=== PATIENT | female | born 1945 | race Caucasian/White ===

== ENCOUNTER → 2023-10-19 10:15 | Outpatient (REF) | payer MEDICARE, OTHER, SELFPAY | LOC: RAD 10:15 | PROVIDERS: ATTENDING PHYSICIAN Nurse Practitioner Adult Health | DX: I82.462 Acute embolism and thrombosis of left calf muscular vein (principal); Z79.01 Long term (current) use of anticoagulants; E87.1 Hypo-osmolality and hyponatremia | CPT/HCPCS: 93971 ==

== ENCOUNTER → 2023-12-17 15:22 | Outpatient (REF) | payer MEDICARE, SELFPAY | LOC: WDC 15:22 | PROVIDERS: ATTENDING PHYSICIAN Family Medicine | DX: Z78.0 Asymptomatic menopausal state (principal); Z12.31 Encounter for screening mammogram for malignant neoplasm of breast | CPT/HCPCS: 77063; 77067; 77080 ==

== ENCOUNTER → 2024-01-08 16:10 | Outpatient (REF) | payer MEDICARE, SELFPAY ==
[2024-01-08 17:15] LABS: % Basophils 0.4 % (0-2); % Eosinophils 0.5 % (0-6); % Immature Granulocytes 0.4 % (0-0.5); % Monocytes 10.8 % (1.7-9.3); % Neutrophils 63.9 % (42.2-75.2); Absolute Lymphocytes 1.8 10^3/uL (1.2-3.4); Absolute Monocytes 0.8 10^3/uL (0.1-0.6); Absolute Neutrophils 4.7 10^3/uL (1.4-6.5); Hematocrit 38.6 % (37.0-47.0); Hemoglobin 12.8 g/dL (12.0-16.0); Mean Corp Hgb Conc. 33.2 g/dL (33.0-37.0); Mean Corpuscular Hgb 28.9 pg (27.0-31.0); Mean Corpuscular Volume 87.1 fL (81.0-99.0); Nucleated Red Blood Cells % 0 %; Platelet Count 184 10^3/uL (130-400); Red Blood Cell Count 4.43 10^6/uL (4.20-5.40); Red Cell Dist. Width 15.4 % (11.5-14.5); White Blood Cell Count 7.4 10^3/uL (4.8-10.8)
[2024-01-08 17:32] LABS: ALT (SGPT) 16 U/L (0-35); AST (SGOT) 23 U/L (14-36); Albumin 4.1 g/dl (3.5-5.0); Alkaline Phosphatase 67 U/L (38-126); Blood Urea Nitrogen 15 mg/dl (7-17); Calcium 9.6 mg/dl (8.4-10.2); Carbon Dioxide 27 mmol/L (22-30); Chloride 100 mmol/L (98-107); Direct Bilirubin 0.3 mg/dl (0.0-0.4); Glucose 96 mg/dl (70-99); Iron 90 ug/dl (37-170); Potassium 4.4 mmol/L (3.5-5.1); Sodium 135 mmol/L (135-145); Total Bilirubin 0.6 mg/dl (0.2-1.3); Total Protein 7.1 g/dl (6.3-8.2); eGFR > 60.00
[2024-01-08 17:41] LABS: Percent Saturation 26 % (20-50); Total Iron Binding Capacity 334 ug/dl (265-497)
[2024-01-08 18:03] LABS: TSH 1.02 uIU/ml (0.47-4.68)
[2024-01-08 18:07] LABS: Ferritin 77.5 ng/ml (11.1-264.0)
== END ==
LOC: REG 16:10
PROVIDERS: ATTENDING PHYSICIAN Nurse Practitioner Adult Health; FAMILY PHYSICIAN Family Medicine; REFERRING PHYSICIAN Podiatrist Foot Surgery
DX: I82.462 Acute embolism and thrombosis of left calf muscular vein (principal); Z79.01 Long term (current) use of anticoagulants; E87.1 Hypo-osmolality and hyponatremia; G25.81 Restless legs syndrome; M97.02XA Periprosthetic fracture around internal prosthetic left hip joint, initial encounter
CPT/HCPCS: 36415; 80053; 82248; 82728; 83540; 83550; 84443; 85025

== ENCOUNTER → 2024-04-22 15:05 | Outpatient (REF) | payer MEDICARE, SELFPAY ==
[2024-04-22 17:12] LABS: ALT (SGPT) 14 U/L (0-35); AST (SGOT) 25 U/L (14-36); Albumin 4.6 g/dl (3.5-5.0); Alkaline Phosphatase 76 U/L (38-126); Direct Bilirubin 0.3 mg/dl (0.0-0.4); Total Bilirubin 0.6 mg/dl (0.2-1.3)
[2024-04-22 17:27] LABS: Total Protein 7.3 g/dl (6.3-8.2)
== END ==
LOC: REG 15:05
PROVIDERS: ATTENDING PHYSICIAN Podiatrist Foot Surgery; FAMILY PHYSICIAN Family Medicine
DX: I10 Essential (primary) hypertension (principal)
CPT/HCPCS: 36415; 80076

== ENCOUNTER 2024-08-20 02:01 | Emergency (ER) | payer MEDICARE, SELFPAY ==
[2024-08-20] VITALS (12 sets, daily range): BP systolic 83–137; BP diastolic 56–88; PULSE 73–101
[2024-08-20 02:52] LABS: % Basophils 0.4 % (0-2); % Eosinophils 1.6 % (0-6); % Immature Granulocytes 0.3 % (0-0.5); % Lymphocytes 37.5 % (20.5-51.1); % Monocytes 10.7 % (1.7-9.3); % Neutrophils 49.5 % (42.2-75.2); Absolute Eosinophils 0.1 10^3/uL (0-0.7); Absolute Lymphocytes 2.5 10^3/uL (1.2-3.4); Absolute Monocytes 0.7 10^3/uL (0.1-0.6); Absolute Neutrophils 3.3 10^3/uL (1.4-6.5); Hematocrit 36.7 % (37.0-47.0); Hemoglobin 12.1 g/dL (12.0-16.0); Mean Corpuscular Hgb 28.9 pg (27.0-31.0); Mean Corpuscular Volume 87.6 fL (81.0-99.0); Mean Platelet Volume 9.2 fL (7.4-10.4); Nucleated Red Blood Cells % 0 %; Platelet Count 206 10^3/uL (130-400); Red Blood Cell Count 4.19 10^6/uL (4.20-5.40); Red Cell Dist. Width 13.5 % (11.5-14.5); White Blood Cell Count 6.8 10^3/uL (4.8-10.8)
[2024-08-20 03:04] LABS: INR 1.05; PT 14.2 Sec (11.4-14.6)
[2024-08-20 03:05] LABS: APTT 25.3 Sec (23.4-35.0)
[2024-08-20 03:14] LABS: ALT (SGPT) 15 U/L (0-35); AST (SGOT) 24 U/L (14-36); Albumin 4.1 g/dl (3.5-5.0); Alkaline Phosphatase 70 U/L (38-126); Blood Urea Nitrogen 19 mg/dl (7-17); Calcium 9.3 mg/dl (8.4-10.2); Carbon Dioxide 25 mmol/L (22-30); Chloride 99 mmol/L (98-107); Glucose 129 mg/dl (70-99); Potassium 4.4 mmol/L (3.5-5.1); Sodium 132 mmol/L (135-145); Total Bilirubin 0.2 mg/dl (0.2-1.3); Total Protein 6.9 g/dl (6.3-8.2); eGFR > 60.00
--- NOTE | 2024-08-20 03:50 | ED.GENMED ---
History of Present Illness
General
Chief Complaint: Trauma Significant Mechanism
Source: patient and family
Exam Limitations: none
Time Seen by Provider: 08/20/24 02:18
Nursing documentation reviewed up to this point in time: agreed with
History of Present Illness
History of Present Illness:
78-year-old female presents with head injury. She slipped on some water and struck her head on the frame of the bathtub. She did suffer a large laceration to her left forehead. She is not on any blood thinners. Patient did state that while in
the emergency department she did have some neck pain. She was immediately put in a cervical collar. CT scan of the head and cervical spine ordered. Patient denies any other symptoms.
Past History
Past History
ED Past Medical History: GERD, Psychiatric and Other (Back pain, osteoarthritis, cataracts)
ED Past Surgical History: Gynecological (Oophorectomy), Orthopedic (keller rods 2009, L CRESENCIO 2012. To have protruding valentín removed next month) and Tonsilectomy
Social History
Tobacco: Non-smoker
Personal:
Living: with family
Employment: Employed
Review of Systems
Review of Systems
Allergies reviewed?: Yes
Other source history: family
All Other Systems: ROS reviewed and negative except as documented in HPI and ROS
Constitutional: Reports no symptoms
EENT: Reports no symptoms
Respiratory: Reports no symptoms
Cardiac: Reports no symptoms
ABD/GI: Reports no symptoms
: Reports no symptoms
Musculoskeletal: Reports neck pain
Skin: Reports no symptoms
Neurological: Reports headache
Endocrine: Reports no symptoms
Hematologic/Lymphatic: Reports no symptoms
Psychiatric: Reports no symptoms
Phy Exam
General Physical Exam
General Presentation: well appearing and no apparent distress
General Skin: warm and dry
General Habitus: normal
General Mental: alert
General Hydration: appears well hydrated
ENT Exam
ENT Exam: EOMI, pharynx normal, neck supple and normocephalic
Eye Exam
Eye Exam: PERRL, cornea clear and conjunctiva normal
Cardiovascular Exam
Cardiovascular Exam: regular rate/rhythm, no edema, no murmur and normal peripheral pulses
Pulmonary Exam
Pulmonary Exam: lungs clear, no respiratory distress, no rales, no crackles, no rhonchi, no stridor, no wheezing and no cough
Gastrointestinal Exam
Gastrointestinal Exam: normal bowel sounds, non tender, soft, no organomegaly, no pulsatile mass and non distended
Neurological Exam
Neurological Exam: alert, oriented x3, no motor deficits and speech normal
Musculoskeletal Exam
Musculoskeletal Exam: full ROM and no edema
Skin Exam
Skin Exam: normal color, warm/dry, no rash, no petechia and laceration (Left forehead)
Psychiatric Exam
Psychiatric Exam: normal mood/affect
Course
Orders/Labs/Results
Orders:
Orders
08/20/24 02:09
CT Head W/o Iv Contrast Urgent
Comment:
Reason For Exam: trip and fall
08/20/24 02:15
CT Cervical Spine W/o Iv Contr Stat
Comment:
Reason For Exam: fall
08/20/24 02:35
Type+Screen Stat
Complete Blood Count/With Diff Stat
Comprehensive Metabolic Panel Stat
PTT Stat
Prothrombin Time Stat
08/20/24 06:03
Acetaminophen [Tylenol] 650 mg .ROUTE .STK-MED ONE
08/20/24 06:09
0.9% Sodium Chloride 500 ml [Nss] 500 ml IV BOLUS
08/20/24 06:11
Acetaminophen [Tylenol] 650 mg PO NOW STA
Abnormal Lab Results
08/20/24
02:35
RBC 4.19 L 10^6/uL
(4.20-5.40)
Hct 36.7 L %
(37.0-47.0)
Absolute Monos (auto) 0.7 H 10^3/uL
(0.1-0.6)
Monocytes % 10.7 H %
(1.7-9.3)
Sodium 132 L mmol/L
(135-145)
BUN 19 H mg/dl
(7-17)
Glucose 129 H mg/dl
(70-99)
08/20/24 02:35
08/20/24 02:35
Vital Signs
Initial and Last Documented VS:
Initial Vital Signs
Temp Pulse Resp BP Pulse Ox
97.7 F 82 24 137/84 98
08/20/24 02:05 08/20/24 02:05 08/20/24 02:05 08/20/24 02:05 08/20/24 02:05
Last Documented Vital Signs
Temp Pulse Resp BP Pulse Ox
97.7 F 82 24 137/84 95
08/20/24 02:05 08/20/24 02:05 08/20/24 02:05 08/20/24 02:05 08/20/24 02:45
Procedures
Laceration Closure
Left Forehead:
Status of Wound: clean
Size of Wound in cm: 4
Description of Wound Edges: sharp and flap-well vascularized
Preparation: cleaned with soap & water and cleaned with saline
Anesthesia: 1% Lidocaine with epi (To stop the bleeding arterial)
Revision/Debridement: routine- no revision
Wound exploration: explored to base- no FB
Type of Closure: single layer closure
Skin Closure Material: 5-0 nylon and 5-0 prolene
Number of sutures: 7
Additional information:
Patient tolerated procedure well
*Radiology
Radiology exam reviewed: radiology read reviewed
*Pulse Oximetry
Patient hypoxic: no
*Critical Care Note
Total Time (30-74mins, 75-104mins- exclusive of procedures): Not Applicable
Update Note
Update Note:
CT head and C-spine without IV contrast
IMPRESSION:
CT HEAD: Left frontal/parietal scalp laceration without underlying calvarial fracture or acute intracranial abnormality.
CT CERVICAL spine: No acute osseous trauma. Alignment intact. Degeneration. Vertebral body heights preserved. Craniocervical junction intact. Bone demineralization.
Finalized at 3:42 AM EST
Rafat Falk M.D.
ED Attending Note
-
Portions of this chart may have been created with voice recognition software.� Occasional wrong word or��sound alike� substitutions may have occurred due to the inherent limitations of voice recognition software.
Discharge Plan
Departure
Patient Disposition: Home (Routine Discharge)
Date of Disposition: 08/20/24
Time of Disposition: 07:37
Patient with high blood pressure during this ER visit?: No
Condition: Fair
Discharge Problem:
Fall, Forehead laceration
Instructions: Wound Care (DC), Head Injury in Adults (DC), Laceration Repair With Stitches (DC), BLOOD PRESSURE
Prescriptions:
No Action
ropinirole 0.5 mg Tablet
0.5 mg PO HS
duloxetine 20 mg Capsule,Delayed Release(Dr/Ec)
40 mg PO HS
solifenacin [Vesicare] 5 mg Tablet
5 mg PO HS
docusate sodium 100 mg Capsule
100 mg PO BID Qty: 0 0RF
Eliquis 5 mg Tablet
5 mg PO BID Qty: 0 0RF
polyethylene glycol 3350 [HealthyLax] 17 gram Powder In Packet
17 g PO DAILY Qty: 0 0RF
oxycodone 5 mg Tablet
10 mg PO Q4HPRN PRN (Reason: severe pain) Qty: 10 0RF
acetaminophen [Pain Relief ES (acetaminophen)] 500 mg Tablet
1,000 mg PO TID Qty: 0 0RF
ketorolac 10 mg Tablet
10 mg PO TID Qty: 0 0RF
tramadol 50 mg Tablet
25 mg PO Q6HPRN PRN (Reason: moderate pain) Qty: 10 0RF
Referrals:
Hortensia Kirby MD [Family Provider] -
Activity Restrictions/Additional Instructions:
It was a pleasure meeting you and taking part in your care. We hope for your continued healing and wellness.
Please read discharge instructions in their entirety. However, they are for general education and may not describe your exact diagnosis at discharge. Information on your ER visit and medical conditions were discussed with you along with appropriate
follow up information...
If indicated, please take your medications as instructed and indicated on discharge paperwork.
Please schedule a follow up appointment as directed. Call to schedule an appointment
Please return to the emergency department with ANY change in, persisting, or worsening of symptoms. If any of your symptoms do not improve, or persist, or become more severe within 6-12 hours, please return to the emergency department for further
care.
Please return to the emergency department if you develop a headache, neck pain/stiffness, fever greater than 100.4F, chest pain, shortness of breath, persistent nausea, vomiting, slurred speech, difficulty walking, numbness/tingling, weakness, signs
of infection or any other symptoms that are worrisome to you.
If you have any questions or concerns please do not hesitate to call the Hospital at or E-mail me directly at [email or web address]
Interventions
Interventions:
*Risk Screen - Suicide Last Done: 08/20/24 02:45
*General Assessment Last Done: 08/20/24 02:45
*Neglect/Abuse Screening Last Done: 08/20/24 02:45
ED- Fall Risk Assessment Last Done: 08/20/24 02:45
*ED COVID-19 Vaccine History Last Done: 08/20/24 02:45
ED- Neurological Assessment Last Done: 08/20/24 02:45
ED-Skin Assessment Last Done: 08/20/24 02:45
Discharge Date and Time
Print Language: NICARAGUAN
[2024-08-20] MEDS: NSS 500 IV (06:10)
[2024-08-20] MEDS: TYLENOL 650 MG PO (06:11)
== END 2024-08-20 08:00 | disposition home or self-care (01) ==
LOC: EMR 02:01
PROVIDERS: EMERGENCY PHYSICIAN Student in an Organized Health Care Education/Training Program; FAMILY PHYSICIAN Family Medicine
DX: S01.81XA Laceration without foreign body of other part of head, initial encounter (principal); M54.2 Cervicalgia; R51.9 Headache, unspecified; R42 Dizziness and giddiness; W01.198A Fall on same level from slipping, tripping and stumbling with subsequent striking against other object, initial encounter; Y92.002 Bathroom of unspecified non-institutional (private) residence as the place of occurrence of the external cause; K21.9 Gastro-esophageal reflux disease without esophagitis; M19.90 Unspecified osteoarthritis, unspecified site; M81.0 Age-related osteoporosis without current pathological fracture; Z96.642 Presence of left artificial hip joint; Z88.2 Allergy status to sulfonamides; Z88.8 Allergy status to other drugs, medicaments and biological substances; Z98.1 Arthrodesis status
CPT/HCPCS: 99284; 12013; 96360; 70450; 72125; 80053; 85025; 85610; 85730; 86850; 86900; 86901

== ENCOUNTER → 2024-11-27 13:07 | Outpatient (REF) | payer OTHER, SELFPAY ==
[2024-11-27 14:30] LABS: % Basophils 0.3 % (0-2); % Eosinophils 2.5 % (0-6); % Immature Granulocytes 0.3 % (0-0.5); % Lymphocytes 39.4 % (20.5-51.1); % Monocytes 11.9 % (1.7-9.3); % Neutrophils 45.6 % (42.2-75.2); Absolute Eosinophils 0.2 10^3/uL (0-0.7); Absolute Lymphocytes 2.4 10^3/uL (1.2-3.4); Absolute Monocytes 0.7 10^3/uL (0.1-0.6); Absolute Neutrophils 2.7 10^3/uL (1.4-6.5); Hematocrit 42.2 % (37.0-47.0); Hemoglobin 13.4 g/dL (12.0-16.0); Mean Corp Hgb Conc. 31.8 g/dL (33.0-37.0); Mean Corpuscular Hgb 26.7 pg (27.0-31.0); Mean Corpuscular Volume 84.1 fL (81.0-99.0); Mean Platelet Volume 9.8 fL (7.4-10.4); Nucleated Red Blood Cells % 0 %; Platelet Count 217 10^3/uL (130-400); Red Blood Cell Count 5.02 10^6/uL (4.20-5.40); Red Cell Dist. Width 14.6 % (11.5-14.5)
[2024-11-27 14:52] LABS: ALT (SGPT) 13 U/L (0-35); AST (SGOT) 22 U/L (14-36); Albumin 4.7 g/dl (3.5-5.0); Alkaline Phosphatase 95 U/L (38-126); Blood Urea Nitrogen 12 mg/dl (7-17); Calcium 9.4 mg/dl (8.4-10.2); Carbon Dioxide 28 mmol/L (22-30); Chloride 103 mmol/L (98-107); Glucose 91 mg/dl (70-99); HDL Cholesterol 87 mg/dl; LDL Cholesterol, Calculated 109 mg/dl; Potassium 4.4 mmol/L (3.5-5.1); Sodium 138 mmol/L (135-145); Total Bilirubin 0.5 mg/dl (0.2-1.3); Total Cholesterol 214 mg/dl (50-199); Total Protein 7.8 g/dl (6.3-8.2); Triglyceride 94 mg/dl (10-149); Very Low Density Lipoprotein 18 mg/dl (0-30); eGFR > 60.00
[2024-11-27 15:30] LABS: TSH 2.43 uIU/ml (0.47-4.68)
[2024-11-27 15:33] LABS: Ferritin 11.1 ng/ml (11.1-264.0)
[2024-11-28 10:18] LABS: Glycohemoglobin (HgbA1c) 5.6 % (4.0-5.6)
== END ==
LOC: REG 13:07
PROVIDERS: ATTENDING PHYSICIAN Family Medicine
DX: G25.81 Restless legs syndrome (principal); E66.811 Obesity, class 1; E78.00 Pure hypercholesterolemia, unspecified; M81.0 Age-related osteoporosis without current pathological fracture
CPT/HCPCS: 36415; 80053; 80061; 82728; 83036; 84443; 85025

== ENCOUNTER → 2025-04-22 15:09 | Outpatient (REF) | payer OTHER, SELFPAY ==
[2025-04-22 17:17] LABS: Hematocrit 42.7 % (37.0-47.0); Hemoglobin 13.5 g/dL (12.0-16.0); Mean Corp Hgb Conc. 31.6 g/dL (33.0-37.0); Mean Corpuscular Volume 88.8 fL (81.0-99.0); Nucleated Red Blood Cells % 0 %; Platelet Count 192 10^3/uL (130-400); Red Cell Dist. Width 13.6 % (11.5-14.5)
[2025-04-22 17:43] LABS: ALT (SGPT) 14 U/L (0-35); AST (SGOT) 23 U/L (14-36); Albumin 4.7 g/dl (3.5-5.0); Alkaline Phosphatase 75 U/L (38-126); Blood Urea Nitrogen 12 mg/dl (7-17); Calcium 9.3 mg/dl (8.4-10.2); Carbon Dioxide 28 mmol/L (22-30); Chloride 101 mmol/L (98-107); Glucose 84 mg/dl (70-99); Iron 118 ug/dl (37-170); Potassium 4.5 mmol/L (3.5-5.1); Sodium 134 mmol/L (135-145); Total Protein 7.7 g/dl (6.3-8.2); eGFR > 60.00
[2025-04-22 17:53] LABS: Total Iron Binding Capacity 300 ug/dl (265-497)
[2025-04-22 18:14] LABS: TSH 2.34 uIU/ml (0.47-4.68)
[2025-04-22 18:18] LABS: Ferritin 63.3 ng/ml (11.1-264.0)
[2025-04-23 09:07] LABS: Glycohemoglobin (HgbA1c) 5.4 % (4.0-5.6)
== END ==
LOC: REG 15:09
PROVIDERS: ATTENDING PHYSICIAN Family Medicine
DX: R79.0 Abnormal level of blood mineral (principal); E66.811 Obesity, class 1
CPT/HCPCS: 36415; 80053; 82728; 83036; 83540; 83550; 84443; 85025

== ENCOUNTER → 2025-05-26 19:11 | Outpatient (REF) | payer OTHER, SELFPAY | LOC: WDC 19:11 | PROVIDERS: ATTENDING PHYSICIAN Family Medicine | DX: Z12.31 Encounter for screening mammogram for malignant neoplasm of breast (principal) | CPT/HCPCS: 77063; 77067 ==